=== PATIENT | female | born 1995 | race Caucasian/White ===

== ENCOUNTER 2023-08-02 10:14 | Emergency (ER) | payer OTHER ==
[2023-08-02 10:33] VITALS: BMI 28.7
[2023-08-02 11:42] LABS: BASO % 0.4 % (0-2.0); EOS % 1.1 % (0-4.5); HEMATOCRIT 39.6 % (32.4-45.2); HEMOGLOBIN 13.2 GM/dL (10.7-15.3); LYMPH % 35.7 % (8-40); MCH 29.8 pg (25.7-33.7); MCHC 33.4 g/dl (32.0-36.0); MEAN CELL VOLUME 89.3 fl (80-96); MEAN PLT VOLUME 7.2 fl (7.5-11.1); MONO % 13.5 % (3.8-10.2); NEUT % 49.3 % (42.8-82.8); PLATELET COUNT 390 10^3/uL (134-434); RBC 4.43 M/mm3 (3.60-5.2); RDW 13.7 % (11.6-15.6); WHITE BLOOD COUNT 4.6 K/mm3 (4.0-10.0)
[2023-08-02 11:58] LABS: POTASSIUM 4.4 mmol/L (3.5-5.1)
[2023-08-02 12:00] LABS: CALCIUM 9.3 mg/dL (8.5-10.1)
[2023-08-02 12:01] LABS: ALBUMIN 3.7 g/dl (3.4-5.0); BLOOD UREA NITROGEN 6.3 mg/dL (7-18)
[2023-08-02 12:04] LABS: CREATININE 0.6 mg/dL (0.55-1.3)
[2023-08-02 12:06] LABS: BILIRUBIN,TOTAL 0.5 mg/dL (0.2-1); TOT PROT 7.6 g/dl (6.4-8.2)
[2023-08-02 12:18] LABS: URINE APPEARANCE CLEAR; URINE BILIRUBIN NEGATIVE (NEGATIVE); URINE COLOR YELLOW; URINE GLUCOSE (UA) NEGATIVE (NEGATIVE); URINE KETONE NEGATIVE (NEGATIVE); URINE LEUK ESTERASE NEGATIVE (NEGATIVE); URINE NITRITE NEGATIVE (NEGATIVE); URINE PROTEIN NEGATIVE (NEGATIVE); URINE UROBILINOGEN 0.2 mg/dL (0.2-1.0)
[2023-08-02 12:19] LABS: HCG,QUALITATIVE URINE Positive
[2023-08-02 14:32] VITALS: BP 113/66; PULSE 86; RESP 20; TEMP 98.1
== END 2023-08-02 14:32 | disposition home or self-care (01) ==
LOC: JER 10:14
DX: O26.891 Other specified pregnancy related conditions, first trimester (principal); R10.2 Pelvic and perineal pain; Z3A.01 Less than 8 weeks gestation of pregnancy
CPT/HCPCS: 36415; 76817-TC; 80053; 81003; 84702; 84703; 85025; 86850; 86900; 86901; 87086; 99284-25

== ENCOUNTER 2023-08-03 00:44 | Emergency (ER) | payer OTHER ==
[2023-08-03 00:51] VITALS: BP 112/76; PULSE 89; RESP 18; TEMP 97.8; BMI 28.7
[2023-08-03] MEDS: morphine CARPU-JECT 2 MG/1 ML DISP.SYRIN IM ONE (02:34)
== END 2023-08-03 02:55 | disposition home or self-care (01) ==
LOC: JER 00:44
PROC: 3E023GC Introduction of Other Therapeutic Substance into Muscle, Percutaneous Approach (ICD-10-PCS; principal; 2023-08-03)
DX: O26.891 Other specified pregnancy related conditions, first trimester (principal); R10.9 Unspecified abdominal pain; Z3A.01 Less than 8 weeks gestation of pregnancy
CPT/HCPCS: 96372; 99284-25

== ENCOUNTER 2024-04-09 19:35 | Inpatient (IN) | payer OTHER ==
[2024-04-09] MEDS: LACTATED RINGERS SOLUTION 1,000 ML IV ONE (21:00)
[2024-04-09] MEDS: DINOPROSTONE 10 MG VAGINAL SUPPOSITORY VG ONE (21:13)
[2024-04-09 21:48] VITALS: BMI 31.6
[2024-04-10] MEDS ORDERED: BUTORPHANOL TARTRATE 2 MG/ML VIAL ONE (00:35)
[2024-04-10] MEDS ORDERED: PROMETHAZINE HCL 25 MG/1 ML VIAL ONE (00:35)
[2024-04-10] MEDS: PROMETHAZINE HCL 25 MG/1 ML VIAL IVPB ONE (00:40)
[2024-04-10] MEDS: BUTORPHANOL TARTRATE 2 MG/ML VIAL IVPB ONE (00:40)
[2024-04-10] MEDS ORDERED: FENTANYL/BUPIVACAINE/NS/PF - PCEA - 50 ML DISP.SYRIN EP ONE ×3 (04:26→13:22)
[2024-04-10] MEDS ORDERED: NALOXONE HCL 0.4 MG/ML VIAL IVPUSH PRN (04:27)
[2024-04-10] MEDS ORDERED: FENTANYL CITRATE/PF 50 MCG/ML VIAL ONE (04:39)
[2024-04-10] MEDS ORDERED: BUPIVACAINE HCL/PF 0.25% (2.5MG/ML) 10 ML VIAL ONE ×2 (04:39→11:29)
[2024-04-10] MEDS: FENTANYL/BUPIVACAINE/NS/PF - PCEA - 50 ML DISP.SYRIN EP SCH ×2 (04:55→05:48)
[2024-04-10] MEDS ORDERED: OXYTOCIN 30 UNITS in 0.9% NS 30 UNIT/500 ML INFUS.BAG IVPB ONE (08:29)
[2024-04-10] MEDS: OXYTOCIN 30 UNITS in 0.9% NS 30 UNIT/500 ML INFUS.BAG IVPB SCH (08:39)
[2024-04-10] MEDS: ELECTROLYTE-148 SOLN 1,000 ML IV SCH (10:44)
[2024-04-10] MEDS: LACTATED RINGERS SOLUTION 1,000 ML IV SCH (11:35)
[2024-04-10] MEDS: CITRIC ACID/SODIUM CITRATE 30 ML UNIT-DOSE CUP PO ONE (13:45)
[2024-04-10] MEDS ORDERED: morphine SULFATE/PF 1 MG/2 ML (2cc Syringe - QUVA) ONE (13:51)
[2024-04-10] MEDS ORDERED: SODIUM CHLORIDE 0.9% P/F 10 ML VIAL IJ ONE (13:52)
[2024-04-10] MEDS ORDERED: ceFAZolin SODIUM 1 GM VIAL ONE (13:52)
[2024-04-10] MEDS ORDERED: OXYTOCIN 20 UNITS in 0.9% NS 20 UNIT/1,000 ML INFUS.BAG IV ONE ×2 (14:50→17:46)
[2024-04-10] MEDS: OXYTOCIN 20 UNITS in 0.9% NS 20 UNIT/1,000 ML INFUS.BAG IV SCH (15:00)
[2024-04-10] MEDS ORDERED: METHYLERGONOVINE MALEATE 0.2 MG/1 ML AMP IM PRN (15:32)
[2024-04-10] MEDS ORDERED: IBUPROFEN (CALDOLOR) 800 MG/200 ML PREMIX BAGS IVPB ONE (15:48)
[2024-04-10] MEDS: IBUPROFEN 800 MG/8 ML IJ IVPB PRN (15:58)
[2024-04-11] MEDS: ACETAMINOPHEN 1000 MG/100 ML BAG IVPB PRN (01:34)
[2024-04-11 07:34] LABS: BASO % 0.2 % (0-2.0); EOS % 1.8 % (0-4.5); HEMOGLOBIN 11.5 GM/dL (10.7-15.3); LYMPH % 20.3 % (8-40); MCH 30.6 pg (25.7-33.7); MCHC 32.9 g/dl (32.0-36.0); MEAN CELL VOLUME 92.8 fl (80-96); MEAN PLT VOLUME 7.8 fl (7.5-11.1); MONO % 9.9 % (3.8-10.2); NEUT % 67.8 % (42.8-82.8); PLATELET COUNT 189 10^3/uL (134-434); RBC 3.77 M/mm3 (3.60-5.2); RDW 20.9 % (11.6-15.6); WHITE BLOOD COUNT 7.2 K/mm3 (4.0-10.0)
[2024-04-11] MEDS: FERROUS SO4 325 MG TABLET (FP) PO SCH (07:59)
[2024-04-11 08:53] LABS: ANISOCYTOSIS 2+; MACROCYTOSIS 1+
[2024-04-11] MEDS: PRENATAL VITAMINS W/ FOLIC ACID TABLET (FP) PO SCH (09:11)
[2024-04-11] MEDS: IBUPROFEN 600 MG TABLET (FP) PO PRN (09:12)
[2024-04-11] MEDS: oxyCODONE HCL 5 MG TABLET PO PRN ×2 (11:37→19:57)
[2024-04-11 14:57] VITALS: RESP 18
[2024-04-11] MEDS: ACETAMINOPHEN 325 MG TABLET (FP) PO PRN (15:14)
[2024-04-11] MEDS: ACETAMINOPHEN/CAFFEINE/BUTALBITAL 1 TAB PO PRN (17:02)
[2024-04-11] MEDS: SIMETHICONE 80 MG TAB.CHEW (FP) PO PRN (21:14)
[2024-04-12] MEDS: BISACODYL 10 MG SUPP.RECT RC PRN (14:30)
[2024-04-12] MEDS: SENNOSIDES/DOCUSATE COMBO (SENNA PLUS) TABLET (UD) PO PRN (21:22)
[2024-04-13 08:29] VITALS: BP 106/90; PULSE 61; TEMP 97.8
== END 2024-04-13 12:55 | disposition home or self-care (01) | DRG 540 ==
LOC: JLDR 19:35 → J3W 04-10 18:00
PROVIDERS: ADMIT Obstetrics & Gynecology; ATTEND Obstetrics & Gynecology
PROC: 10D00Z1 Extraction of Products of Conception, Low, Open Approach (ICD-10-PCS; principal; 2024-04-10)
PROC: 3E0P7VZ Introduction of Hormone into Female Reproductive, Via Natural or Artificial Opening (ICD-10-PCS; 2024-04-10)
PROC: 3E033VJ Introduction of Other Hormone into Peripheral Vein, Percutaneous Approach (ICD-10-PCS; 2024-04-10)
DX: O32.4XX0 Maternal care for high head at term, not applicable or unspecified (principal); O48.0 Post-term pregnancy; O61.0 Failed medical induction of labor; G97.1 Other reaction to spinal and lumbar puncture; Z3A.40 40 weeks gestation of pregnancy; Z37.0 Single live birth
CPT/HCPCS: 36415; 59025; 80048; 85025; 85610; 85730; 86780; 86803; 86850; 86900; 86901; 87340; 88307-TC; J0131